=== PATIENT | female | born 1950 | race Caucasian/White ===

== ENCOUNTER → 2017-01-15 | Outpatient (CLI) | payer MEDICARE, OTHER ==
[2017-01-15 11:32] LABS: Basophils % (A) 1 %; CH 30.1; CHCM 34.4; Eosinophils # (A) 0.2 k/uL (0-0.7); Eosinophils % (A) 4 %; HCT 41.3 % (34.0-46.0); HDW 2.81; HGB 13.9 gm/dL (11.4-16.0); Luc % (Auto) 2; Lymphocytes # (A) 1.7 k/uL (1.0-4.8); Lymphocytes % (A) 33 %; MCH 29.7 pg (25.0-35.0); MCHC 33.7 g/dL (31.0-37.0); MCV 87.9 fL (80.0-100.0); Mean Platelet Volume 8.6; Monocytes # (A) 0.2 k/uL (0-1.0); Monocytes % (A) 4 %; Neutrophils # (A) 2.9 k/uL (1.3-7.7); Neutrophils % (A) 57 %; RBC 4.69 m/uL (3.80-5.40); RDW 13.1 % (11.5-15.5); WBC 5.1 k/uL (3.8-10.6); WBC (Perox) 5.19
[2017-01-15 11:49] LABS: ALT 27 U/L (9-52); AST 30 U/L (14-36); Alkaline Phosphatase 92 U/L (38-126); Anion Gap 11 mmol/L; Blood Urea Nitrogen 15 mg/dL (7-17); Calcium 9.7 mg/dL (8.4-10.2); Carbon Dioxide 27 mmol/L (22-30); Chloride 104 mmol/L (98-107); Cholesterol 239 mg/dL (<200); Glucose 155 mg/dL (74-99); HDL Cholesterol 52 mg/dL (40-60); Non-African American GFR(MDRD) >60 (>60 ml/min/1.73 sqM); Potassium 3.8 mmol/L (3.5-5.1); Sodium 142 mmol/L (137-145); Total Bilirubin 1.4 mg/dL (0.2-1.3); Triglycerides 130 mg/dL (<150)
[2017-01-15 12:33] LABS: Hemoglobin A1C 5.9 % (4.2-6.1)
--- NOTE | 2017-01-15 13:15 | CT ---
EXAMINATION TYPE: CT abdomen pelvis w con DATE OF EXAM: 01/15/2017 12:58 PM HISTORY: Diverticulitis per order. Left-sided pain and nausea. Irregular bowel movements. CT DLP: 513.2mGycm Automated Exposure Control for Dose Reduction was Utilized. CONTRAST: CT scan of the abdomen and pelvis is performed with IV Contrast, patient injected with 100 ml mL of O mnipaque 300. COMPARISON: CT abdomen and pelvis October 15, 2016. FINDINGS: LUNG BASES: Dependent atelectatic change is present. There is stable mild cardiomegaly. LIVER/GB: No significant abnormality is appreciated. PANCREAS: No significant abnormality is seen. SPLEEN: No significant abnormality is seen. ADRENALS: No significant abnormality is seen. KIDNEYS: Persistent anterior axis to both kidneys is present. Symmetric cortical measure uptake and e xcretion is noted. BOWEL: Sigmoid colonic diverticula are redemonstrated. There is no convincing evidence for acute dive rticulitis. There is no suspicious small or large bowel dilatation seen. Oral contrast reaches proxim al transverse colon level UTERUS/ADNEXA: No gross abnormality seen. LYMPH NODES: No greater than 1cm abdominal or pelvic lymph nodes are appreciated. OSSEOUS STRUCTURES: There is disc space narrowing with vacuum disc phenomenon L5-S1 level. There is m ultilevel spurring. There is facet arthropathy lower lumbar levels. OTHER: No significant additional abnormality is seen. IMPRESSION: Colonic diverticulosis most pronounced sigmoid colon level without CT evidence for acute diverticulitis. No significant new finding is seen to account for patient's symptoms.
== END | disposition home or self-care (01) ==
LOC: RADCTMAIN 09:51
PROVIDERS: ATTEND Pediatrics
DX: K57.30 Diverticulosis of large intestine without perforation or abscess without bleeding (principal); E11.9 Type 2 diabetes mellitus without complications; K57.32 Diverticulitis of large intestine without perforation or abscess without bleeding
CPT/HCPCS: 80061; 80053; 83036; 85025; 74177; 36415; Q9967

== ENCOUNTER 2017-03-17 06:56 | Day surgery (SDC) | payer MEDICARE, OTHER ==
[2017-03-15 10:48] VITALS: BMI 25.0
[~2017-03-17 06:56] MED LIST: LACTATED RINGERS 1,000 ML IV SCH
[2017-03-17 07:16] VITALS: TEMP 96.9
[2017-03-17] MEDS ORDERED: ONDANSETRON 4 MG/2 ML VIAL IVP ONE (07:16)
[2017-03-17 07:27] LABS: Glucose,Whole Blood 103 mg/dL (75-99)
[2017-03-17] MEDS ORDERED: fentaNYL (PF) 50 MCG/ML 2 ML AMP ONE (07:37)
[2017-03-17] MEDS ORDERED: LIDOCAINE 1% INJ 10MG/ML (20 ML MDV) ONE (07:37)
[2017-03-17] MEDS ORDERED: MIDAZOLAM 2 MG/2 ML VIAL ONE (07:37)
[2017-03-17] MEDS ORDERED: PROPOFOL 10 MG/ML 20 ML VIAL IV ONE (07:37)
--- NOTE | 2017-03-17 07:56 | P.PCN ---
Date of Procedure: 03/17/17 Preoperative Diagnosis: Postoperative Diagnosis: Procedure(s) Performed: Brief history: Patient is a pleasant 66-year-old white female, scheduled for an elective upper endoscopy as well as colonoscopy as a part of evaluation of lower abdominal pain , change in bowel habits and intermittent nausea vomiting for the last several months duration. She was recently diagnosed with acute sigmoid diverticulitis and was treated with antibiotics. She did well for 2 weeks and then started having recurrent symptoms. Procedure performed: Esophagogastroduodenoscopy with biopsy Colonoscopy Preoperative diagnosis: Nausea/vomiting Lower abdominal pain and change in bowel habits Anesthesia: MAC Procedure: After informed consent was obtained from the patient was brought into the endoscopy unit and IV sedation was administered by anesthesia under continuous monitoring. Initially upper endoscopy was done. The Olympus GF 160 video endoscope was inserted inserted into the mouth and esophagus intubated without any difficulty and was gradually advanced into the stomach and duodenum and carefully examined. The bulb and second part of the duodenum appeared normal. The scope was then withdrawn into the stomach adequately insufflated with air and upon careful examination the antrum had mild gastritis and biopsies were done from this area. The body, cardia and fundus appeared normal. The scope was then withdrawn into the esophagus. small hiatal hernia noted. The GE junction was located at 40 cm to the incisors. It appeared regular with no erythema erosions or ulcerations. Rest of the esophagus appeared normal. Patient tolerated the procedure well. At this time the patient continued to remain sedation. Initial digital rectal examination was normal. Olympus CF 160 video colonoscope was then inserted into the rectum and gradually advanced to the cecum without any difficulty. Careful examination was performed as the scope was gradually being withdrawn. The prep was excellent. The cecum, ascending colon, transverse colon, descending colon, sigmoid colon and rectum appeared normal. scattered sigmoid diverticulosis seen. Retroflexion was performed in the rectum and no lesions were noted. Patient tolerated the procedure well. Impression: 1. Upper endoscopy revealed small hiatal hernia and mild antral gastritis. 2. Colonoscopy revealed scattered sigmoid diverticulosis but no evidence of colitis or colorectal neoplasia. Recommendations: Findings of this examination were discussed with the patient as well as her family. She was advised to follow with the biopsy results. She will follow with the biopsy results and can have a repeat screening colonoscopy in 10 years. Implants: Indications for Procedure: Operative Findings: Description of Procedure:
[2017-03-17 08:16] VITALS: RESP 16
[2017-03-17 08:57] VITALS: BP 184/83; PULSE 57
== END 2017-03-17 09:51 | disposition home or self-care (01) ==
LOC: ORWHC2ENDO 06:56
PROVIDERS: ATTEND Internal Medicine Gastroenterology
DX: K29.50 Unspecified chronic gastritis without bleeding (principal); K44.9 Diaphragmatic hernia without obstruction or gangrene; K57.30 Diverticulosis of large intestine without perforation or abscess without bleeding; E11.9 Type 2 diabetes mellitus without complications; Z79.84 Long term (current) use of oral hypoglycemic drugs; F41.9 Anxiety disorder, unspecified; Z79.899 Other long term (current) drug therapy; Z88.8 Allergy status to other drugs, medicaments and biological substances
CPT/HCPCS: 88305; 88342; 45378; 43239; J2250; J2405; J2001; J3010; J2704

== ENCOUNTER → 2017-05-05 | Outpatient (CLI) | payer MEDICARE, OTHER ==
--- NOTE | 2017-05-05 11:29 | XR ---
EXAM TYPE: LUMBAR SPINE X RAY SERIES COMPARISON: NONE HISTORY: Pain TECHNIQUE: 4 views are submitted. FINDINGS: Alignment is anatomic. The pedicles are intact. The transverse processes are intact. There is mild diffuse osteopenia. There is degenerative disc disease at all levels with facet arthropathy. No spon dylolisthesis. Severe degenerative changes L5-S1 and L2-L3. IMPRESSION: 1. Multilevel degenerative disc disease and facet arthropathy.
[2017-05-05 11:43] LABS: CH 30.2; CHCM 34.8; HCT 40.6 % (34.0-46.0); HDW 2.79; HGB 13.9 gm/dL (11.4-16.0); MCH 29.9 pg (25.0-35.0); MCHC 34.4 g/dL (31.0-37.0); MCV 87.1 fL (80.0-100.0); Mean Platelet Volume 8.6; RBC 4.66 m/uL (3.80-5.40); RDW 12.6 % (11.5-15.5)
[2017-05-05 11:48] LABS: ALT 24 U/L (9-52); AST 24 U/L (14-36); Alkaline Phosphatase 78 U/L (38-126); Anion Gap 11 mmol/L; Blood Urea Nitrogen 17 mg/dL (7-17); Calcium 9.6 mg/dL (8.4-10.2); Carbon Dioxide 27 mmol/L (22-30); Chloride 103 mmol/L (98-107); Cholesterol 227 mg/dL (<200); Glucose 107 mg/dL (74-99); HDL Cholesterol 51 mg/dL (40-60); Non-African American GFR(MDRD) >60 (>60 ml/min/1.73 sqM); Sodium 141 mmol/L (137-145); Total Bilirubin 1.8 mg/dL (0.2-1.3); Total Protein 7.6 g/dL (6.3-8.2); Triglycerides 98 mg/dL (<150)
[2017-05-05 20:13] LABS: Hemoglobin A1C 6.2 % (4.2-6.1)
== END | disposition home or self-care (01) ==
LOC: LABWHC1 10:46
PROVIDERS: ATTEND Physician Assistant Medical
DX: M51.36 Other intervertebral disc degeneration, lumbar region (principal); M46.86 Other specified inflammatory spondylopathies, lumbar region; E11.9 Type 2 diabetes mellitus without complications; M54.5 Low back pain
CPT/HCPCS: 36415; 72100; 80053; 80061; 83036; 84443; 85027

== ENCOUNTER 2017-06-05 22:40 | Emergency (ER) | payer MEDICARE, OTHER ==
[2017-06-05 22:45] VITALS: BP 212/92; PULSE 67; RESP 18; TEMP 100.1
--- NOTE | 2017-06-05 23:43 | ED ---
General Adult HPI - General Chief complaint: Extremity Injury, Lower Stated complaint: Foot Pain Time Seen by Provider: 06/05/17 23:01 Source: patient, RN notes reviewed Mode of arrival: ambulatory Limitations: no limitations - History of Present Illness Initial comments: 66-year-old female presents to the emergency Department chief complaint of concern for foreign body in the left foot. Patient states she is walking outside and she felt like a sting to her left foot she does not know if it was a bee or a piece of glass. Patient states her one more time today and that it has not hurt since. Patient states that she has noticed low throat irritation but she was outside all day in the rain as well. Patient states she was concerned so she thought that she should be evaluated.Patient denies any recent fever, chills, shortness of breath, chest pain, back pain, abdominal pain, nausea vomiting, numbness or tingling, dysuria or hematuria, constipation or diarrhea, headaches or visual changes, or any other current symptoms. - Related Data Home Medications Medication Instructions Recorded Confirmed ALPRAZolam [Xanax] 0.125 mg PO HS 03/15/17 06/05/17 Calcium Carbonate [Calcium] 600 mg PO DAILY 03/15/17 06/05/17 Multivitamins, Thera [Multivitamin 1 each PO DAILY 03/15/17 06/05/17 (formulary)] Vitamin C/Biotin [Hair, Skin and 1 each PO DAILY 03/15/17 06/05/17 Nails] metFORMIN HCL [Glucophage] 250 mg PO DAILY 03/15/17 06/05/17 Allergies Allergy/AdvReac Type Severity Reaction Status Date / Time STEROIDS AdvReac FLU LIKE Uncoded 06/05/17 22:45 SYMPTOMS Review of Systems ROS Statement: Those systems with pertinent positive or pertinent negative responses have been documented in the HPI. ROS Other: All systems not noted in ROS Statement are negative. Past Medical History Past Medical History: Diabetes Mellitus Additional Past Medical History / Comment(s): DIVERTICULOSIS. CHRONIC SINUS TYPE COUGH History of Any Multi-Drug Resistant Organisms: None Reported Additional Past Surgical History / Comment(s): Blepharoplasty BILAT EYELIDS Past Anesthesia/Blood Transfusion Reactions: Postoperative Nausea & Vomiting ( PONV) Past Psychological History: Anxiety Smoking Status: Never smoker Past Alcohol Use History: Occasional Past Drug Use History: None Reported - Past Family History Mother Family Medical History: No Reported History General Exam Limitations: no limitations General appearance: alert, in no apparent distress Head exam: Present: atraumatic, normocephalic, normal inspection Eye exam: Present: normal appearance, PERRL, EOMI. Absent: scleral icterus, conjunctival injection, periorbital swelling ENT exam: Present: normal exam, normal oropharynx, mucous membranes moist, TM's normal bilaterally Neck exam: Present: normal inspection. Absent: tenderness, meningismus, lymphadenopathy Respiratory exam: Present: normal lung sounds bilaterally. Absent: respiratory distress, wheezes, rales, rhonchi, stridor Cardiovascular Exam: Present: regular rate, normal rhythm, normal heart sounds. Absent: systolic murmur, diastolic murmur, rubs, gallop, clicks Neurological exam: Present: alert, oriented X3 Psychiatric exam: Present: normal affect, normal mood Skin exam: Present: warm, dry, intact, other (Small puncture wound to the bottom of the left foot) Course Vital Signs 06/05/17 22:42 Temperature 100.1 F H Pulse Rate 67 Respiratory 18 Rate Blood Pressure 212/92 O2 Sat by Pulse 99 Oximetry Medical Decision Making - Medical Decision Making 66-year-old female presents with puncture wound to the bottom of the left foot. At this time it is very minimal there is no bleeding associated with it. This time we discussed other causes for this. No foreign bodies visualized on x -ray. At this time we did discuss that could still be foreign body. Care of area. We did discuss the patient's ears nose and throat exam does appear to be normal. We discussed different possible causes multiple causes. We discussed close follow-up we discussed return parameters and all patient's questions. She stated that she understood and she is given plan. She'll be discharged home. Disposition Clinical Impression: Puncture wound of left foot, Throat irritation Disposition: HOME SELF-CARE Condition: Stable Instructions: Puncture Wound (ED), Pharyngitis (ED) Additional Instructions: Please use medication as discussed. Please follow up with family doctor if symptoms have not improved over the next two days. Please return to the emergency room if your symptoms increase or worsen or for any other concerns. Referrals: Johanna Maza III, MD [Primary Care Provider] - 1-2 days Time of Disposition: 23:57
--- NOTE | 2017-06-05 23:53 | XR ---
EXAM: XR Left Foot Complete, 3 or More Views CLINICAL HISTORY: Reason: Pain TECHNIQUE: Frontal, lateral and oblique views of the left foot. COMPARISON: None. FINDINGS: Bones/joints: Osteopenia suggested. A tiny calcaneal spur seen. Mild degenerative changes. No acute fracture. No dislocation. Soft tissues: Unremarkable. No radiopaque foreign body. IMPRESSION: No acute findings, as above.
== END 2017-06-06 00:10 | disposition home or self-care (01) ==
LOC: SUPCPDRO 22:40 → EC 22:40
DX: S91.332A Puncture wound without foreign body, left foot, initial encounter (principal); R09.89 Other specified symptoms and signs involving the circulatory and respiratory systems; E11.9 Type 2 diabetes mellitus without complications; F41.9 Anxiety disorder, unspecified; Z88.8 Allergy status to other drugs, medicaments and biological substances; Z79.84 Long term (current) use of oral hypoglycemic drugs; Z79.899 Other long term (current) drug therapy; X58.XXXA Exposure to other specified factors, initial encounter; Y93.01 Activity, walking, marching and hiking
CPT/HCPCS: 99283

== ENCOUNTER → 2017-06-21 | Outpatient (CLI) | payer MEDICARE, OTHER ==
--- NOTE | 2017-06-21 21:31 | MR ---
EXAMINATION TYPE: MR lumbar spine wo con DATE OF EXAM: 06/21/2017 COMPARISON: CT abdomen and pelvis January 15, 2017 HISTORY: Low back pain per order. Back pain with spasms since 1994 per patient causing pain into bila teral buttocks TECHNIQUE: Multiplanar, multisequence imaging of the lumbar spine is performed without IV contrast. FINDINGS: Survey images redemonstrates dextroconvex scoliotic curvature centered in the upper to mid lumbar spine. Sagittal images of the lumbar spine show vertebral body heights and alignment to appear satisfactory. Multilevel disc desiccation is present. There is multilevel mild to moderate disc spac e narrowing with relative sparing of L4-L5. Multilevel posterior disc herniations are seen on sagitta l images in the mid to lower lumbar spine. The conus medullaris is normal in position and signal endi ng at inferior L1 level. The bone marrow signal intensity is overall slightly heterogeneous with hem angioma noted in the inferior anterior T11 endplate. There is mild to moderate multilevel anterior sp urring redemonstrated. Axial images show the T12-L1 level to appear within normal limits. Axial images at the L1-L2 level show mild broad disc bulge mildly effacing anterior thecal sac and ax ial image 23. Bilateral neural foramina are patent. Axial images at L2-L3 level show moderate broad-based posterior disc protrusion effacing anterior the omayra sac. There is mild facet degenerative changes and ligamentum flavum hypertrophy effacing posterio r lateral thecal sac on axial images 17 and 18. There is mild bilateral anterior inferior neural fora brandy narrowing at this level identified. Axial images at the L3-L4 level show mild to moderate facet degenerative changes bilaterally effacing posterior lateral thecal sac. There is mild to moderate broad disc bulge effacing anterior thecal sa c. There is moderate left and mild right-sided anterior inferior neural foraminal narrowing. Encroach ment on right L3 nerve lung anterior inferior aspect is felt present on sagittal image 4 and axial im ages 13 and 14. Axial images at the L4-L5 level show moderate facet degenerative changes effacing posterior lateral t hecal sac on axial image 8. There is broad-based right paracentral/foraminal disc protrusion effacing anterior thecal sac. There is mild to moderate right and mild left-sided anterior inferior neural fo raminal narrowing at this level identified. Axial images at the L5-S1 level show mild to moderate facet degenerative changes bilaterally. There i s broad disc bulge mildly effacing the anterior thecal sac. There is mild bilateral anterior inferior neural foraminal narrowing identified. Paraspinal muscle bulk is maintained bilaterally. No suspicious retroperitoneal findings are present. IMPRESSION: Multilevel degenerative changes in the lumbar spine most prominent in mid to lower lumbar levels as detailed above, effacement of right L3 nerve is suspected as detailed above.
== END | disposition home or self-care (01) ==
LOC: RADMRIMAIN 15:12
PROVIDERS: ATTEND Physician Assistant Medical
DX: M47.817 Spondylosis without myelopathy or radiculopathy, lumbosacral region (principal)
CPT/HCPCS: 72148

== ENCOUNTER → 2017-09-01 | Outpatient (CLI) | payer MEDICARE, OTHER ==
[2017-09-01 13:55] VITALS: BP 195/89; PULSE 58; RESP 16
--- NOTE | 2017-09-01 14:18 | P.CONS ---
History of Present Illness - Reason for Consult Consult date: 09/01/17 - History of Present Illness The initial consultation visit for this 66 years old female with a chronic history of severe low back pain, started more than 10 years ago, and still the pain increased over the last 2 years, currently the pain is constant and increases with any activity localized mostly in the low back area, with occasional radiation to the thighs bilaterally , she denies any motor or sensory deficits but she reported that the intensity of the pain interfering with her quality of life and ability to function and do activities of daily livings, she reported that there is some change in the bone involvement , and this is attributed to diverticulitis/diverticulosis, he denies any fever or night sweats. Past Medical History Past Medical History: Diabetes Mellitus, Hypertension Additional Past Medical History / Comment(s): DIVERTICULOSIS. CHRONIC SINUS TYPE COUGH History of Any Multi-Drug Resistant Organisms: None Reported Additional Past Surgical History / Comment(s): Blepharoplasty BILAT EYELIDS Past Anesthesia/Blood Transfusion Reactions: Postoperative Nausea & Vomiting ( PONV) Past Psychological History: Anxiety Smoking Status: Never smoker Past Alcohol Use History: Occasional Past Drug Use History: None Reported - Past Family History Mother Family Medical History: No Reported History Medications and Allergies Home Medications Medication Instructions Recorded Confirmed Type ALPRAZolam [Xanax] 0.125 mg PO HS 03/15/17 09/01/17 History Calcium Carbonate [Calcium] 600 mg PO DAILY 03/15/17 09/01/17 History Multivitamins, Thera [Multivitamin 1 tab PO DAILY 03/15/17 09/01/17 History (formulary)] metFORMIN HCL [Glucophage] 250 mg PO DAILY 03/15/17 09/01/17 History Ciprofloxacin HCl [Cipro] 500 mg PO Q12HR #20 tablet 08/26/17 09/01/17 Rx Hydrocodone/Acetaminophen [[place] 1 tab PO Q6HR PRN #15 tab 08/26/17 09/01/17 Rx 5-325] Ibuprofen [Motrin] 800 mg PO Q6H PRN 08/26/17 09/01/17 History Lisinopril [Zestril] 5 mg PO BID 08/26/17 09/01/17 History Ondansetron Odt [Zofran Odt] 4 mg PO Q8HR PRN #10 tab 08/26/17 09/01/17 Rx metroNIDAZOLE [Flagyl] 500 mg PO TID #30 tab 08/26/17 09/01/17 Rx Allergies Allergy/AdvReac Type Severity Reaction Status Date / Time bee venom protein (honey bee) Allergy Anaphylaxis Verified 09/01/17 13:40 hornet venom Allergy Anaphylaxis Verified 09/01/17 13:40 STEROIDS AdvReac FLU LIKE Uncoded 09/01/17 13:40 SYMPTOMS Physical Exam Vitals: Vital Signs Pulse Resp BP Pulse Ox 09/01/17 13:43 58 L 16 195/89 98 Intake and Output 08/31/17 09/01/17 09/01/17 22:59 06:59 14:59 Other: Weight 69.853 kg Patient Weight 09/02/17 06:59 Weight 69.853 kg Social history : not smoker , NO ETOH , NO Illegal drugs use . Review of Systems : 1- Constitutional : no chills , no fever , no night sweats , 2- Ears : no ear discharge , no change in hearing 3-Nose, Mouth ,Throat ; no bleeding gums, no sore throat , no epistaxis , 4-Cardiovascular : Denies chest pain, , no orthopnea , no palpitation 5-Respiratory : Denies cough , no dyspnea , no hemoptysis 6-Gastrointestinal :, ++ change in bowel habits , no coffee- ground emesis . 7-Genitourinary : No hematuria , no discharge , no incontinence, 8-Musculoskeletal : No gait dysfunction , report low back pain , 9- Neurological : no ataxia , no tremor , no sezure , 10-Psychatric , no suicidal ideation no hallucination 11- Endocrine : no cold intolerence , no polyuria , no polydypsia , 12-Hematologic : no easy bleeding , no easy brusing , 13-Allergic / immunology : no angioedema , no wheezing ,no allergic rhinitis 14-Integumentary : no brttle nails , no change hair / nails , no foot/leg ulcers . Physical Examinations : 1-Constitutional : Cooperative , not in acute distress . 2-HEENT : nech ; supple , no Lymphadenopathy , no Thyromegaly , :eyes , no icterus, no photophobia . ENT : , normal oropharynx , no Thrush 3- Respiratory : Chest clear to auscultations Bilaterally , no wheezing . 4- Cardiovascular : regular rate and rhythem , S1 , S2 , no S3 , no S4. 5- Gastrointestinal: abdomen soft no tenderness , no organomegally . 6- Genitourinary : Defferred . 7-Integumentary : No cellulitis , no ulcers , normal skin turgor , no cyanotic . 8- neurologic : Cranial nerve II to XII intact , no focal neurological deffecit 9-psychatric : alert , oriented X 3 , appropriate affect , intact judgment and insight . 10-Lymphatic : no Lymphadenopathy. 11- musculoskeltal: normal gait Lumber spine moter stegnth lower extremities ,thigh and legs 5/5 Right side , 5/5 Left side deep tendon reflexes : normal Knee Jerk , normal ankle Jerk positive lumber facet Loading Test Range of motion of the lumbar spine Flexion 30 degrees, extension 10 degrees strait leg raising test , positive at 30 degree Fabere test positive RT and positive LT . Results Comments: MRI of the lumbar spine= multilevel lumbar degenerative disc disease and multilevel lumbar facet arthropathy Assessment and Plan Plan: Assessment and plan= chronic low back pain secondary to lumbar degenerative disc disease , lumbar spondylosis with lumbar facet arthropathy , clinically most of the pain is coming from facetogenic component Interventional pain management= patient could be good candidate to have diagnostic medial branch block lumbar area at L3 4/L4-5/L5-S1 , Time with Patient: Greater than 30
== END | disposition home or self-care (01) ==
LOC: PNWHC3 13:10
PROVIDERS: ATTEND Specialist
DX: M51.36 Other intervertebral disc degeneration, lumbar region (principal); M47.816 Spondylosis without myelopathy or radiculopathy, lumbar region; M46.86 Other specified inflammatory spondylopathies, lumbar region; Z79.1 Long term (current) use of non-steroidal anti-inflammatories (NSAID); Z79.899 Other long term (current) drug therapy; Z88.8 Allergy status to other drugs, medicaments and biological substances; Z91.030 Bee allergy status
CPT/HCPCS: 99211

== ENCOUNTER → 2017-11-09 | Outpatient (CLI) | payer MEDICARE, OTHER ==
--- NOTE | 2017-11-09 12:15 | WWHP ---
[facility] - HISTORY AND PHYSICAL DATE OF DICTATION: 11/09/2017 CHIEF COMPLAINT: The patient is here for her routine gynecologic exam and mammogram. HPI: This is a 67-year-old, G2, P1-0-1-1 with an LMP of 2002. The patient is without gynecologic complaints and denies any postmenopausal bleeding. PAST MEDICAL HISTORY: Type 2 diabetes, chronic hypertension, chronic back problems and diverticulosis. MEDICATIONS: 1. Lisinopril 10 mg daily. 2. Metformin 250 mg daily. 3. Xanax 0.25 mg at bedtime p.r.n. 4. [place] p.r.n. 5. Ibuprofen p.r.n. ALLERGIES: No known drug allergies. PAST SURGICAL HISTORY: Eyelid surgery 2009, nasal surgery 1996, right breast biopsy in the past and colonoscopy 02/2017. 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 SOCIAL HISTORY: She denies tobacco and drug use and has about one alcohol-containing drink per week. She is and is not seeing anybody at this time. She is considered disabled. 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 FAMILY HISTORY: Father had an [facility]. REVIEW OF SYSTEMS: Weight has been stable. She denies respiratory, cardiac or GI problems. She denies maltreatment or falling. : She denies any significant problems with urinary leakage. PHYSICAL EXAM: Blood pressure 154/84, height 5 feet 4-1/2 inches, weight 149 pounds, BMI 25. Temperature 97.4, pulse 51. This is a well-developed, well-nourished, white female, who is alert and oriented x3, in no acute distress. HEENT is within normal limits. NECK: Supple without mass or thyromegaly. CHEST AND LUNGS: Clear to auscultation. HEART: Regular rate and rhythm. Breasts are without mass or discharge. The left nipple is inverted and she states it has been this way since about 2013. Axillary exam is negative for adenopathy. Back negative for CVA tenderness. ABDOMEN: Soft, nontender, without palpable masses. PELVIC EXAM: External genitalia reveals mild atrophy without lesions. Cervix and vagina reveals mild atrophy without lesions. There is no evidence of prolapse. The uterus is mid position, nongravid size and nontender. There are no palpable adnexal masses or tenderness. Rectovaginal exam is negative for mass or tenderness and is negative for occult blood. EXTREMITIES: Nontender. IMPRESSION: A 67-year-old menopausal female with normal gynecologic exam. PLAN: 1. Pap smear was deferred since she had a normal one less than 2 years ago. 2. Self breast examination was discussed. 3. Mammogram will be done today. 4. Osteoporosis prevention was discussed. Bone density screening was recommended and a slip was given to the patient for this. 5. She is declining flu shots. 6. She will return in 1 year. MMODL / IJN: [id number] /
--- NOTE | 2017-11-10 11:40 | MM ---
Reason for exam: screening (asymptomatic). Last mammogram was performed 1 year and 5 months ago. History: Patient is postmenopausal. Excisional biopsy of the right breast, 1979. Took hormonal contraceptives for 33 years beginning at age 21. Physical Findings: A clinical breast exam by your physician is recommended on an annual basis and results should be correlated with mammographic findings. MG 3D Screening Mammo W/Cad Bilateral CC and MLO view(s) were taken. Prior study comparison: October 06, 2016, left breast US breast LT. May 28, 2016, bilateral MG 3d diag mammo w/cad E[facility]. March 13, 2015, bilateral MG diagnostic mammo w CAD E[facility]. The breast tissue is heterogeneously dense. This may lower the sensitivity of mammography. No suspicious abnormality. No significant changes when compared with prior studies. ASSESSMENT: Negative, BI-RAD 1 RECOMMENDATION: Routine screening mammogram of both breasts in 1 year.
== END | disposition home or self-care (01) ==
LOC: WWCWWP 10:32
PROVIDERS: ATTEND Obstetrics & Gynecology
DX: Z12.31 Encounter for screening mammogram for malignant neoplasm of breast (principal)
CPT/HCPCS: 77063; 77067

== ENCOUNTER → 2018-10-04 | Outpatient (CLI) | payer MEDICARE, OTHER ==
[2018-10-04 11:45] VITALS: BP 160/76; PULSE 60; TEMP 97.8; BMI 26.7
--- NOTE | 2018-10-04 12:21 | P.PN ---
Progress Note - Text Progress Note Date: 10/04/18 Chief Complaint: menstrual like cramping which started 3 days ago. HPI: this is a 67-year-old with an LMP of 2002. The patient states she started an exercise routine about 2 weeks ago and has been walking and running for exercise. Three days ago, she was at an event and ran a short distance when she developed menstrual like cramping. She states that felt like something was in the vagina that wanted to come out. She had this type of sensation years ago when she would pass blood during a menstrual period. She denies any postmenopausal bleeding. She states the has improved today. She feels that she may have passed a small amount of gas from the vagina. She has also had occasional left lower quadrant and left pelvic discomfort which she has attributed to diverticulosis. She has noticed this discomfort with certain types of foods. This left sided discomfort is different than what she was experiencing 3 days ago. ROS: she denies fever, respiratory, cardiac, or G.I. problems. She states her bowel movements have been regular. She denies diarrhea or loose stools. Her appetite has been good. She denies any new sexual partners. PE: Blood pressure: 160 or 76, Height: 5'4", Weight: 156 pounds, Temperature: 97.8, Pulse:[]. This is a well developed, well nourished, white female who is alert and orientedx3, in no acute distress. Abdomen soft, nontender and nondistended. There are no palpable abdominal masses. Pelvic exam: external genitalia reveals mild atrophy without lesions. Cervix and vagina appear normal. There is no unusual discharge and no evidence of blood. There is no cervical motion tenderness. The uterus is mid positioned non-gravid size and nontender. There are no palpable adnexal masses. There is minimal left adnexal tenderness and there is no right adnexal tenderness. Impression: 1. 67-year-old menopausal female with recent history of menstrual type cramping without postmenopausal bleeding. 2. Occasional left lower quadrant and left pelvic pain with minimal tenderness in the area of the left adnexa on exam today. 3. Differential diagnosis for the left adnexal and menstrual type cramping pain include endometrial thickening, Hematometrium, left adnexal mass, and non- gynecologic causes such as intestinal spasm and cramping. Plan: 1. Pelvic ultrasound will be scheduled. We will evaluate the endometrial thickness as well as check for ovarian masses. 2. If the pelvic ultrasound does not show a gynecologic cause, I believe it is more likely that there is a G.I. cause for her discomfort. Time spent with the patient: 25 minutes
--- NOTE | 2018-10-11 16:13 | P.PN ---
Progress Note - Text Progress Note Date: 10/11/18 The patient called today saying she's been having some abdominal pains and difficulty moving her bowels. She states she has had a normal bowel movement in several days. She did have a small stool today and noticed a small amount of blood when she wiped. She is scheduled for her pelvic ultrasound on 2017, but she is trying to move this sooner. A/constipation and abdominal pains with small blood per rectum upon wiping. P/ I've recommended that she try Senokot as directed. She can also try eating prunes or dates followed by drinking hot lemon water. She will try to move the bowels before her pelvic ultrasound is done. She was also instructed that if her pain gets severe or significant problems, she can all so go through the emergency room for evaluation. If the pelvic ultrasound is unremarkable, I will recommend looking into other G.I. causes for her discomfort.
== END | disposition home or self-care (01) ==
LOC: WWCWWP 11:00
PROVIDERS: ATTEND Obstetrics & Gynecology
DX: Z53.9 Procedure and treatment not carried out, unspecified reason (principal)

== ENCOUNTER → 2018-10-14 | Outpatient (CLI) | payer MEDICARE, OTHER ==
--- NOTE | 2018-10-14 13:59 | US ---
EXAMINATION TYPE: US pelvic complete DATE OF EXAM: 10/14/2018 COMPARISON: CT CLINICAL HISTORY: R10.2 PELVIC PAIN. lower abdominal pain and pelvic pain x 2 weeks and now subsiding ; diverticulitis; ; constipation per patient TECHNIQUE: Transabdominal (TA). Transabdominal sonographic images of the pelvis were acquired. Date of LMP: post menopause per patient EXAM MEASUREMENTS: Uterus: 7.4 x 4.0 x 2.6 cm Endometrial Stripe: 0.4 cm Right Ovary: 2.5 x 1.3 x 1.2 cm Left Ovary: 2.4 x 1.9 x 1.3 cm 1. Uterus: Anteverted wnl 2. Endometrium: wnl post menopause 3. Right Ovary: wnl 4. Left Ovary: wnl Spectral, color and waveform doppler imaging shows good arterial and venous flow within the ovaries ; there is no evidence for ovarian torsion. 5. Bilateral Adnexa: wnl 6. Posterior cul-de-sac: wnl IMPRESSION: Unremarkable transabdominal pelvic ultrasound. Endometrial thickness measures 4 mm and is within normal limits for a postmenopausal female. No adnexal masses seen.
--- NOTE | 2018-10-15 10:36 | P.PN ---
Progress Note - Text Progress Note Date: 10/15/18 Test Results Notification Negative pelvic ultrasound test result from 10/14/18. This result was left in a message on the patient's voicemail. Instructed to call if questions.
== END | disposition home or self-care (01) ==
LOC: RADUSWWP 12:19
PROVIDERS: ATTEND Obstetrics & Gynecology
DX: R93.89 Abnormal findings on diagnostic imaging of other specified body structures (principal); R10.2 Pelvic and perineal pain
CPT/HCPCS: 76856

== ENCOUNTER → 2019-01-31 | Outpatient (CLI) | payer MEDICARE, OTHER ==
[2019-01-31 11:35] VITALS: BP 150/71; PULSE 75; RESP 16; TEMP 97.1; BMI 26.4
--- NOTE | 2019-01-31 12:16 | P.HPOB ---
History of Present Illness H&P Date: 01/31/19 Chief Complaint: The patient is here for her routine gynecologic exam and ma mmogram. This is a 68-year-old G to P1011 with an LMP of 2002. The patient is without gynecologic complaints and denies any postmenopausal bleeding. She was seen in September 2018 for menstrual like cramping without bleeding. Pelvic ultrasound was unremarkable. She states the symptoms resolved within one or 2 weeks. Review of Systems The patient has gained 5 pounds over the last year. She denies cardiac or G.I. problems. Respiratory: she is getting over a head cold. She denies maltreatment or falling. : she states when she gets up quickly she occasionally has slight urinary urgency, but this resolves quickly. She denies any significant problems with urinary leakage. Past Medical History Past Medical History: Diabetes Mellitus, Hypertension Additional Past Medical History / Comment(s): Type II diabetes. Chronic back problems. 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 History of Any Multi-Drug Resistant Organisms: None Reported Past Surgical History: Breast Surgery Additional Past Surgical History / Comment(s): Blepharoplasty BILAT EYELIDS. Nasal surgery. Colonoscopy 2017(next in 10 yrs). Right breast biopsy. Past Anesthesia/Blood Transfusion Reactions: Postoperative Nausea & Vomiting (PONV) Past Psychological History: Anxiety Smoking Status: Never smoker Past Alcohol Use History: Occasional (1-4 per week) Past Drug Use History: None Reported Additional History: She is and is not seeing anybody at this time. She is considered disabled. 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 - Past Family History Mother Family Medical History: No Reported History Father Family Medical History: Myocardial Infarction ([place]) Medications and Allergies Home Medications Medication Instructions Recorded Confirmed Type ALPRAZolam [Xanax] 0.125 mg PO HS 03/15/17 01/31/19 History Calcium Carbonate [Calcium] 600 mg PO DAILY 03/15/17 01/31/19 History Multivitamins, Thera [Multivitamin 1 tab PO DAILY 03/15/17 01/31/19 History (formulary)] metFORMIN HCL [Glucophage] 250 mg PO DAILY 03/15/17 01/31/19 History Hydrocodone/Acetaminophen [[place] 1 tab PO Q6HR PRN #15 tab 08/26/17 10/04/18 Rx 5-325] Ibuprofen [Motrin] 400 mg PO Q8HR 09/01/17 10/04/18 History Losartan [Cozaar] 25 mg PO DAILY 10/04/18 10/04/18 History Cholecalciferol [Vitamin D3] 1,000 unit PO DAILY 01/31/19 01/31/19 History Allergies Allergy/AdvReac Type Severity Reaction Status Date / Time bee venom protein (honey bee) Allergy Anaphylaxis Verified 01/31/19 11:22 hornet venom Allergy Anaphylaxis Verified 01/31/19 11:22 STEROIDS AdvReac FLU LIKE Uncoded 01/31/19 11:22 SYMPTOMS Exam Vital Signs Temp Pulse Resp BP 01/31/19 11:31 97.1 F L 75 16 150/71 Intake and Output 01/30/19 01/31/19 01/31/19 22:59 06:59 14:59 Other: Weight 69.853 kg Height 5'4", weight 154 pounds, BMI 26.4. This is a well-developed well-nourished white female who is alert and oriented times 3 in no acute distress. HEENT: Within normal limits. NECK: Supple without mass or thyromegaly. CHEST AND LUNGS: Clear to auscultation. HEART: Regular rate and rhythm. BREASTS: Are without mass or discharge. The left nipple is inverted and she states that is been this way since 2013. AXILLARY EXAM: Negative for adenopathy. BACK: Negative for CVA tenderness. ABDOMEN: Soft, nontender, without palpable masses. PELVIC EXAM: Normal external genitalia with mild atrophy. Cervix and vagina appear normal with mild atrophy. There is no unusual discharge. There is no evidence of prolapse. The uterus is midposition, nongravid size and nontender. There are no palpable adnexal masses or tenderness. RECTAL EXAM: rectovaginal exam is negative for mass or tenderness and is negative for occult blood. EXTREMITIES: Nontender. IMPRESSION: 1. 68-year-old menopausal female with normal gynecologic exam. PLAN: 1. Pap smear was performed. 2. Self breast awareness was discussed with the patient. 3. Screening mammogram will be done today. 4. Osteoporosis prevention was discussed. I have stressed the importance of adequate calcium, vitamin D and regular exercise. Recommended amounts of calcium and vitamin D were also discussed. I have recommended bone density screening since it is been at least 7 years since this was done according to the patient. 5. She states she does not get flu shots. I've asked her to reconsider this. 6.She was advised to return in one year for her annual well woman exam.
--- NOTE | 2019-02-01 13:31 | MM ---
Reason for exam: screening (asymptomatic). Last mammogram was performed 1 year and 3 months ago. History: Patient is postmenopausal. Excisional biopsy of the right breast, 1979. Took hormonal contraceptives for 33 years beginning at age 21. Physical Findings: A clinical breast exam by your physician is recommended on an annual basis and results should be correlated with mammographic findings. MG 3D Screening Mammo W/Cad Bilateral CC and MLO view(s) were taken. Prior study comparison: November 09, 2017, bilateral MG 3d screening mammo w/cad. May 28, 2016, bilateral MG 3d diag mammo w/cad EKTA. The breast tissue is heterogeneously dense. This may lower the sensitivity of mammography. Benign appearing bilateral calcifications. No suspicious abnormality. No significant changes when compared with prior studies. ASSESSMENT: Benign, BI-RAD 2 RECOMMENDATION: Routine screening mammogram of both breasts in 1 year.
== END | disposition home or self-care (01) ==
LOC: WWCWWP 11:13
PROVIDERS: ATTEND Obstetrics & Gynecology
DX: Z12.31 Encounter for screening mammogram for malignant neoplasm of breast (principal)
CPT/HCPCS: 77063; 77067

== ENCOUNTER 2020-05-25 18:43 | Emergency (ER) | payer MEDICARE, OTHER ==
[2020-05-25 18:54] VITALS: PULSE 73
[2020-05-25] MEDS ORDERED: FAMOTIDINE 20 MG/2 ML VIAL IV STA (19:02)
[2020-05-25] MEDS ORDERED: diphenhydrAMINE 50 MG/ML 1 ML VIAL IVP STA (19:02)
[2020-05-25] MEDS ORDERED: methylPREDNISolone SOD SUCCI 125 MG/2 ML VIAL IV STA (19:02)
--- NOTE | 2020-05-25 19:05 | ED ---
Allergic Reaction HPI - General Chief complaint: Allergic Reaction Stated complaint: Bee Stings Time Seen by Provider: 05/25/20 18:58 Source: patient, EMS, RN notes reviewed, old records reviewed Mode of arrival: EMS Limitations: no limitations - History of Present Illness Initial Comments: Patient is a 61-year-old female presents emergency room today with multiple bee stings over her back arm and elbow and hand. Patient reports that there is a swarm of she believes sweat bees. Patient states that she has no trouble breathing trouble swallowing. 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 She has not taken Benadryl or anything else. - Related Data Home Medications Medication Instructions Recorded Confirmed ALPRAZolam [Xanax] 0.125 mg PO HS 03/15/17 01/31/19 Calcium Carbonate [Calcium] 600 mg PO DAILY 03/15/17 01/31/19 Multivitamins, Thera [Multivitamin 1 tab PO DAILY 03/15/17 01/31/19 (formulary)] metFORMIN HCL [Glucophage] 250 mg PO DAILY 03/15/17 01/31/19 Ibuprofen [Motrin] 400 mg PO Q8HR 09/01/17 10/04/18 Losartan [Cozaar] 25 mg PO DAILY 10/04/18 10/04/18 Cholecalciferol [Vitamin D3] 1,000 unit PO DAILY 01/31/19 01/31/19 Previous Rx's Medication Instructions Recorded Hydrocodone/Acetaminophen [[place] 1 tab PO Q6HR PRN #15 tab 08/26/17 5-325] diphenhydrAMINE HCL [Benadryl] 25 mg PO Q6H #20 tab 05/25/20 predniSONE [Deltasone] 20 mg PO DIRECTED #4 tab 05/25/20 Allergies Allergy/AdvReac Type Severity Reaction Status Date / Time bee venom protein (honey bee) Allergy Anaphylaxis Verified 01/31/19 11:22 hornet venom Allergy Anaphylaxis Verified 01/31/19 11:22 STEROIDS AdvReac FLU LIKE Uncoded 01/31/19 11:22 SYMPTOMS Review of Systems ROS Statement: Those systems with pertinent positive or pertinent negative responses have been documented in the HPI. ROS Other: All systems not noted in ROS Statement are negative. Past Medical History Past Medical History: Diabetes Mellitus, Hypertension Additional Past Medical History / Comment(s): Type II diabetes. Chronic back problems. 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 History of Any Multi-Drug Resistant Organisms: None Reported Past Surgical History: Breast Surgery Additional Past Surgical History / Comment(s): Blepharoplasty BILAT EYELIDS. Nasal surgery. Colonoscopy 2017(next in 10 yrs). Right breast biopsy. Past Anesthesia/Blood Transfusion Reactions: Postoperative Nausea & Vomiting (PONV) Past Psychological History: Anxiety Smoking Status: Never smoker Past Alcohol Use History: Occasional Past Drug Use History: None Reported - Past Family History Mother Family Medical History: No Reported History Father Family Medical History: Myocardial Infarction ([place]) General Exam - General Exam Comments Initial Comments: 69 -year-old female. Alert and oriented. No distress. Limitations: no limitations General appearance: alert, in no apparent distress Head exam: Present: atraumatic, normocephalic, normal inspection Eye exam: Present: normal appearance, PERRL, EOMI. Absent: scleral icterus, conjunctival injection, periorbital swelling ENT exam: Present: normal exam, mucous membranes moist Neck exam: Present: normal inspection. Absent: tenderness, meningismus, lymphadenopathy Respiratory exam: Present: normal lung sounds bilaterally. Absent: respiratory distress, wheezes, rales, rhonchi, stridor Cardiovascular Exam: Present: regular rate, normal rhythm, normal heart sounds. Absent: systolic murmur, diastolic murmur, rubs, gallop, clicks GI/Abdominal exam: Present: soft, normal bowel sounds. Absent: distended, tenderness, guarding, rebound, rigid Extremities exam: Present: normal inspection, full ROM, normal capillary refill, other ( has welts over the right hand from bee sting as well as on the right flank and back). Absent: tenderness, pedal edema, joint swelling, calf tenderness Back exam: Present: normal inspection Neurological exam: Present: alert, oriented X3, CN II-XII intact Psychiatric exam: Present: normal affect, normal mood Skin exam: Present: warm, dry, intact, normal color. Absent: rash Course Vital Signs 05/25/20 18:49 Temperature 98.3 F Pulse Rate 73 Respiratory 20 Rate Blood Pressure 178/84 O2 Sat by Pulse 97 Oximetry Medical Decision Making - Medical Decision Making 61-year-old female presents for his arms today for multiple bee stings in her hand and arm and right flank area. She has history of anaphylactic reaction to bees. She reports her multiple sweat bees. At this time Patient has no difficulty breathing or tongue swelling. She is given IV site measuring Benadryl and Pepcid. Patient was reevaluated and her hives are going down significantly. Patient advised to start steroids for the next 2 days and she does have epi pens at home. Disposition Clinical Impression: Bee sting Disposition: HOME SELF-CARE Condition: Good Instructions (If sedation given, give patient instructions): Insect Bite or Sting (ED) Additional Instructions: Please use medication as discussed. Please follow up with family doctor if symptoms have not improved over the next two days. Please return to the emergency room if your symptoms increase or worsen or for any other concerns. Prescriptions: diphenhydrAMINE HCL [Benadryl] 25 mg PO Q6H #20 tab predniSONE [Deltasone] 20 mg PO DIRECTED #4 tab Is patient prescribed a controlled substance at d/c from ED?: No Referrals: Tiff Arcos MD [Primary Care Provider] - 1-2 days Time of Disposition: 20:29
[2020-05-25 20:46] VITALS: BP 166/82; RESP 16; TEMP 97.8
== END 2020-05-25 20:46 | disposition home or self-care (01) ==
LOC: EC 18:43
DX: T63.441A Toxic effect of venom of bees, accidental (unintentional), initial encounter (principal); F41.9 Anxiety disorder, unspecified; E11.9 Type 2 diabetes mellitus without complications; I10 Essential (primary) hypertension; Z79.84 Long term (current) use of oral hypoglycemic drugs; Z79.899 Other long term (current) drug therapy; Z88.7 Allergy status to serum and vaccine; Z91.030 Bee allergy status; Z91.038 Other insect allergy status
CPT/HCPCS: 99284; 96374; 96375 ×2; J1200; J2930

== ENCOUNTER → 2020-09-11 | Outpatient (CLI) | payer MEDICARE, OTHER ==
[2020-09-11 11:05] VITALS: BP 151/82; PULSE 63; RESP 18; TEMP 97.6
--- NOTE | 2020-09-11 11:58 | P.HPOB ---
History of Present Illness H&P Date: 09/11/20 Chief Complaint: The patient is here for her routine gynecologic exam and ma mmogram. This is a 69-year-old 011 with an LMP of 2002. The patient states she had an episode where she was on her feet for a long time and was doing some physical activity when she thought something dropped into the vagina. This sensation was only temporary and has resolved. She is otherwise without complaints. Review of Systems She has gained about 4 pounds over the past year. She denies respiratory, cardiac and G.I. problems. She denies maltreatment or problems with falling. : she denies any significant problems with urinary leakage. Past Medical History Past Medical History: Diabetes Mellitus, Hypertension Additional Past Medical History / Comment(s): Type II diabetes. Chronic back problems. 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 Grade 2 cystocele. History of Any Multi-Drug Resistant Organisms: None Reported Past Surgical History: Breast Surgery Additional Past Surgical History / Comment(s): Blepharoplasty BILAT EYELIDS. Nasal surgery. Colonoscopy 2017(next in 10 yrs). Right breast biopsy. Past Anesthesia/Blood Transfusion Reactions: Postoperative Nausea & Vomiting (PONV) Past Psychological History: Anxiety Smoking Status: Never smoker Past Alcohol Use History: Occasional (0-2 per day) Past Drug Use History: None Reported Additional History: She is and is not seeing anybody at this time and is not sexually active. She enjoys making [employer]. - Past Family History Mother Family Medical History: No Reported History Father Family Medical History: Myocardial Infarction ([place]) Sister(s) Family Medical History: AFIB Medications and Allergies Home Medications Medication Instructions Recorded Confirmed Type ALPRAZolam [Xanax] 0.125 mg PO HS 03/15/17 09/11/20 History Calcium Carbonate [Calcium] 600 mg PO DAILY 03/15/17 09/11/20 History Multivitamins, Thera [Multivitamin 1 tab PO DAILY 03/15/17 09/11/20 History (formulary)] metFORMIN HCL [Glucophage] 250 mg PO DAILY 03/15/17 09/11/20 History Ibuprofen [Motrin] 400 mg PO Q8HR 09/01/17 09/11/20 History Losartan [Cozaar] 25 mg PO DAILY 10/04/18 09/11/20 History Cholecalciferol [Vitamin D3] 1,000 unit PO DAILY 01/31/19 09/11/20 History Allergies Allergy/AdvReac Type Severity Reaction Status Date / Time bee venom protein (honey bee) Allergy Anaphylaxis Verified 09/11/20 11:00 hornet venom Allergy Anaphylaxis Verified 09/11/20 11:00 STEROIDS AdvReac FLU LIKE Uncoded 09/11/20 11:00 SYMPTOMS Exam Vital Signs Temp Pulse Resp BP Pulse Ox 09/11/20 11:02 97.6 F 63 18 151/82 98 Intake and Output 09/10/20 09/11/20 09/11/20 22:59 06:59 14:59 Other: Weight 71.668 kg Height 5 feet 4-1/2 inches, weight 158 pounds, BMI 27. This is a well-developed well-nourished white female who is alert and oriented times 3 in no acute distress. HEENT: Within normal limits. NECK: Supple without mass or thyromegaly. CHEST AND LUNGS: Clear to auscultation. HEART: Regular rate and rhythm. BREASTS: Are without mass or discharge. The left nipple is centrally inverted and this is been this way for many years. AXILLARY EXAM: Negative for adenopathy. BACK: Negative for CVA tenderness. ABDOMEN: Soft, nontender, without palpable masses. PELVIC EXAM: Normal external genitalia with mild atrophy. Cervix and vagina appear normal mild atrophy. There is no unusual discharge. There is a grade 2 cystocele. There is no significant uterine prolapse or rectocele. The uterus is midposition, nongravid size and nontender. There are no palpable adnexal masses or tenderness. RECTAL EXAM: Rectovaginal exam is negative for mass or tenderness and is negative for occult blood. EXTREMITIES: Nontender. IMPRESSION: 1. 69-year-old menopausal female with a minimally symptomatic grade 2 cystocele. 2. Otherwise unremarkable gynecologic exam. PLAN: 1. Pap smears have been discontinued since she is greater than 65 years of age, has no history of cervical problems and has been adequately screened. 2. Self breast awareness was discussed with the patient. 3. Screening mammogram will be done today. 4. Osteoporosis prevention was discussed. I have stressed the importance of adequate calcium, vitamin D and regular exercise. Recommended amounts of calcium and vitamin D were also discussed. I have recommended bone density screening since it has been many years since her last one. The order slip was given to the patient for this. 5. She states she does not get flu shots. She will reconsider this and consider been vaccinated for Covid when available. 6. We have had a long discussion regarding the cystocele. At this time I do not feel surgical intervention is necessary. I recommended that she empties her bladder when needed and not to hold urine longer than necessary. We have also discussed negative Valsalva exercises which she can try she has the sensation of vaginal pressure or if she is having problems with her urinary stream. She was instructed to call for reevaluation if she is having worsening symptoms or problems. The [employer] FAQ handout on pelvic prolapse was given to the patient. 7. She was advised to return in one year for her annual well woman exam.
--- NOTE | 2020-09-13 09:29 | MM ---
Reason for exam: screening (asymptomatic). Last mammogram was performed 1 year and 7 months ago. History: Patient is postmenopausal. Excisional biopsy of the right breast, 1979. Took hormonal contraceptives for 33 years beginning at age 21. Physical Findings: A clinical breast exam by your physician is recommended on an annual basis and results should be correlated with mammographic findings. MG 3D Screening Mammo W/Cad Bilateral CC and MLO view(s) were taken. Prior study comparison: January 31, 2019, bilateral MG 3d screening mammo w/cad. November 09, 2017, bilateral MG 3d screening mammo w/cad. The breast tissue is heterogeneously dense. This may lower the sensitivity of mammography. Focal asymmetry upper right MLO view. No significant changes when compared with prior studies. ASSESSMENT: Benign, BI-RAD 2 RECOMMENDATION: Routine screening mammogram of both breasts in 1 year.
--- NOTE | 2020-09-17 14:28 | P.PN ---
Progress Note - Text Progress Note Date: 09/17/20 The patient has called today stating that she has been having abdominal and pelvic cramping and she also feels like her abdomen is swollen and bloated. She for weight control, but has noticed her abdomen is growing in size. I do not think her symptoms described above are related to her cystocele which we had discussed at the time of her exam on 09/11/2020. I have recommended that we get a pelvic ultrasound to look at the ovaries to rule out an ovarian neoplasm. If there is no evidence of this by ultrasound, I feel that it would be more likely a GI issue. The order slip for the pelvic ultrasound will be mailed to the patient. She states she will try to do this at the time of her bone density test which she will also be scheduling.
== END | disposition home or self-care (01) ==
LOC: WWCWWP 10:48
PROVIDERS: ATTEND Obstetrics & Gynecology
DX: Z12.31 Encounter for screening mammogram for malignant neoplasm of breast (principal)
CPT/HCPCS: 77063; 77067

== ENCOUNTER → 2020-11-13 | Outpatient (CLI) | payer MEDICARE, OTHER ==
--- NOTE | 2020-11-13 15:31 | US ---
EXAMINATION TYPE: US pelvic complete DATE OF EXAM: 11/13/2020 COMPARISON: US, CT CLINICAL HISTORY: ABD BLOATING, R14.0, R10.2 PELVIC PAIN. Patient stated has diverticula with left pe lvic cramping and pelvic bloating, especially noted after meals; TECHNIQUE: Transabdominal (TA). Transabdominal sonographic images of the pelvis were acquired. Date of LMP: post menopause since age 54 EXAM MEASUREMENTS: Uterus: 7.2 x 4.0 x 2.9 cm Endometrial Stripe: 4.7mm Right Ovary: 2.4 x 1.8 x 1.4 cm Left Ovary: 2.6 x 2.0 x 1.8 cm 1. Uterus: Anteverted 2. Endometrium: thickness is wnl for post menopause status 3. Right Ovary: appears wnl 4. Left Ovary: appears wnl Spectral, color and waveform doppler imaging shows good arterial and venous flow within the ovaries ; there is no evidence for ovarian torsion. 5. Bilateral Adnexa: wnl 6. Posterior cul-de-sac: wnl IMPRESSION: 1. Normal pelvic ultrasound
== END | disposition home or self-care (01) ==
LOC: RADUSWWP 09:43
PROVIDERS: ATTEND Obstetrics & Gynecology
DX: R10.2 Pelvic and perineal pain (principal); R14.0 Abdominal distension (gaseous)
CPT/HCPCS: 76856

== ENCOUNTER → 2020-11-13 | Outpatient (CLI) | payer MEDICARE, OTHER ==
[2020-11-13 10:58] LABS: Basophils % (A) 1 %; Eosinophils # (A) 0.1 k/uL (0-0.7); Eosinophils % (A) 2 %; HCT 41.2 % (34.0-46.0); HGB 14.1 gm/dL (11.4-16.0); Lymphocytes # (A) 1.5 k/uL (1.0-4.8); Lymphocytes % (A) 27 %; MCH 30.6 pg (25.0-35.0); MCHC 34.2 g/dL (31.0-37.0); MCV 89.4 fL (80.0-100.0); Mean Platelet Volume 8.9; Monocytes # (A) 0.2 k/uL (0-1.0); Monocytes % (A) 4 %; Neutrophils # (A) 3.4 k/uL (1.3-7.7); Neutrophils % (A) 64 %; Platelet Count 140 k/uL (150-450); RBC 4.61 m/uL (3.80-5.40); WBC 5.3 k/uL (3.8-10.6)
[2020-11-13 15:53] LABS: African American GFR (CKD) 66.6 (60.0-200.0); Albumin 4.8 g/dL (3.80-4.90); Albumin/Globulin Ratio 2.4 (1.60-3.17); Anion Gap 7.7 mmol/L (4.00-12.00); Calcium 9.8 mg/dL (8.7-10.3); Carbon Dioxide 28.3 mmol/L (21.6-31.8); Chol/HDL Ratio 4.37; LDL Cholesterol,Calculated 158.6 mg/dL (0.0-131.0); Non-African American GFR(CKD) 57.4 (60.0-200.0); Potassium 4.1 mmol/L (3.5-5.5); Total Bilirubin 1.5 mg/dL (0.2-1.2); Total Protein 6.8 g/dL (6.2-8.2); VLDL Calculation 23.4 mg/dL (5.00-40.00)
== END | disposition home or self-care (01) ==
LOC: LABWHC1 09:46
PROVIDERS: ATTEND Physician Assistant Medical
DX: E03.9 Hypothyroidism, unspecified (principal); E11.9 Type 2 diabetes mellitus without complications; I10 Essential (primary) hypertension; F41.1 Generalized anxiety disorder
CPT/HCPCS: 36415; 80053; 80061; 84443; 85025

== ENCOUNTER → 2021-07-29 | Outpatient (CLI) | payer MEDICARE, OTHER ==
--- NOTE | 2021-07-29 14:38 | US ---
EXAMINATION TYPE: US venous doppler duplex LE LT DATE OF EXAM: 07/29/2021 2:19 PM COMPARISON: NONE CLINICAL HISTORY: I80.9 PHLEBITIS. Intermittent left leg cramping x 2 weeks SIDE PERFORMED: Left TECHNIQUE: The lower extremity deep venous system is examined utilizing real time linear array sonog shandra with graded compression, doppler sonography and color-flow sonography. VESSELS IMAGED: Common Femoral Vein Deep Femoral Vein Greater Saphenous Vein * Femoral Vein Popliteal Vein Small Saphenous Vein * Proximal Calf Veins (* superficial vessels) Left Leg: Appears negative for DVT Grayscale, color doppler, spectral doppler imaging performed of the deep veins of the left lower extr emity. There is normal flow, compressibility, vascular waveforms. IMPRESSION: No ultrasound evidence for acute DVT in the left lower extremity.
== END | disposition home or self-care (01) ==
LOC: RADUSWWP 13:27
PROVIDERS: ATTEND Orthopaedic Surgery
DX: M79.662 Pain in left lower leg (principal)

== ENCOUNTER → 2021-09-04 | Outpatient (CLI) | payer MEDICARE, OTHER ==
[2021-09-04 12:51] LABS: ALT 25 U/L (4-34); AST 38 U/L (14-36); African American GFR (CKD) >90 (>60 ml/min/1.73 sqM); Albumin 4.2 g/dL (3.5-5.0); Alkaline Phosphatase 93 U/L (38-126); Anion Gap 9 mmol/L; Blood Urea Nitrogen 14 mg/dL (7-17); Calcium 9.3 mg/dL (8.4-10.2); Carbon Dioxide 23 mmol/L (22-30); Chloride 104 mmol/L (98-107); Glucose 158 mg/dL (74-99); Non-African American GFR(CKD) 90 (>60 ml/min/1.73 sqM); Potassium 4.2 mmol/L (3.5-5.1); Sodium 136 mmol/L (137-145); Total Bilirubin 1.3 mg/dL (0.2-1.3); Total Protein 7.3 g/dL (6.3-8.2)
[2021-09-04 13:09] LABS: Basophils # (A) 0.1 k/uL (0-0.2); Basophils % (A) 1 %; Eosinophils # (A) 0.2 k/uL (0-0.7); Eosinophils % (A) 4 %; HGB 13.9 gm/dL (11.4-16.0); Lymphocytes # (A) 1.3 k/uL (1.0-4.8); Lymphocytes % (A) 26 %; MCH 31.9 pg (25.0-35.0); MCV 93.9 fL (80.0-100.0); Mean Platelet Volume 9.7; Monocytes # (A) 0.3 k/uL (0-1.0); Monocytes % (A) 7 %; Neutrophils # (A) 2.9 k/uL (1.3-7.7); Neutrophils % (A) 59 %; Platelet Count 124 k/uL (150-450); RBC 4.36 m/uL (3.80-5.40); RDW 12.3 % (11.5-15.5)
--- NOTE | 2021-09-04 13:52 | BD ---
EXAMINATION TYPE: Axial Bone Density DATE OF EXAM: 09/04/2021 COMPARISON: NONE CLINICAL HISTORY: Height: 5 FT 3 IN Weight: 157 FRAX RISK QUESTIONS: Alcohol (3 or more units per day): NO Family History (Parent hip fracture): NO Glucocorticoids (More than 3mos): NO (Ex: prednisone, prednisolone, methylprednisolone, dexamethasone, and hydrocortisone). History of Fracture in Adulthood: YES Secondary Osteoporosis: 1. Type 1 Diabetes: TYPE 2 2. Hyperthyroidism: NO 3. Menopause before 45: NO 4. Malnutrition: NO 5. Chronic liver disease: NO Rheumatoid Arthritis: NO Current Tobacco Use: NO RISK FACTORS HISTORY OF: History of Wrist Fracture: YES LEFT When: 7-8 YRS AGO Surgery to Spine/Hip(right/left)/Wrist (right/left): NO Family History of Osteoporosis: YES Active: YES Diet low in dairy products/other sources of calcium: NO Postmenopausal woman: YES Take estrogen and/or progesterone medications: NO Lost more than 2 inches in height since high school: YES Poor Health: YES Hyperparathyroidism: NO Adrenal Insufficiency: NO MEDICATIONS: Additional Medications: LISINOPRIL, METFORMIN, XANAX ,MOTRIN NEEDED Additional History: EXAM MEASUREMENTS: Bone mineral densitometry was performed using the [employer] System. Bone mineral density as measured about the Lumbar spine is: ----- L1-L4(G/cm2): 1.168 T Score Values are as follows: ----- L2: -0.4 ----- L3: 0.3 ----- L4: 0.3 ----- L1-L4: -0.1 Bone mineral density has: INCREASED 10.3 % since study of: 2010 Bone mineral density about the R hip (g/cm2): 0.859 Bone mineral density about the L hip (g/cm2): 0.822 T Score values are as follows: -----R Neck: -1.3 -----L Neck: -1.6 -----R Total: -1.0 -----L Total: -1.1 Bone mineral density has: DECREASED -5.2 % since study of: 2010 IMPRESSION: Osteopenia (T Score between -2.5 and -1). There is slightly increased risk of fracture and the patient may be considered for treatment. Re-Screen 2-5 years. NOTE: T-SCORE=SD OF THE YOUNG ADULT MEAN.
[2021-09-04 23:21] LABS: Chol/HDL Ratio 3.53 Ratio; LDL Cholesterol,Calculated 134.6 mg/dL (0.0-131.0)
[2021-09-08 09:11] LABS: Clam IgE <0.10 kU/L; Codfish IgE <0.10 kU/L; Egg White IgE <0.10 kU/L; Peanut IgE <0.10 kU/L; Scallop IgE <0.10 kU/L; Shrimp IgE <0.10 kU/L; Soybean IgE <0.10 kU/L; Walnut IgE (Food) <0.10 kU/L
== END | disposition home or self-care (01) ==
LOC: RADBDWWP 10:05
PROVIDERS: ATTEND Family Medicine
DX: M85.89 Other specified disorders of bone density and structure, multiple sites (principal); M81.0 Age-related osteoporosis without current pathological fracture
CPT/HCPCS: 77080; 80053; 80061; 82785; 83036; 84443; 85025; 86003

== ENCOUNTER → 2021-10-22 | Outpatient (CLI) | payer MEDICARE ==
[2021-10-22 11:44] VITALS: BP 165/72; PULSE 52; RESP 16; TEMP 98.1
--- NOTE | 2021-10-22 12:40 | P.HPOB ---
History of Present Illness H&P Date: 10/22/21 Chief Complaint: The patient is here for her routine gynecologic exam and ma mmogram. This is a 71-year-old 011 with an LMP of 2002. The patient states she still can feel occasional pressure in the vagina from the known cystocele, but denies seeing any bulging outside of the vaginal opening. She had seen a physical therapist at [facility] for the cystocele. He was given some exercises which included Keagle type exercises. She is otherwise without complaints and denies any postmenopausal bleeding. Review of Systems The patient has lost 4 pounds over the last year. She denies respiratory, cardiac, or G.I. problems. Past Medical History Past Medical History: Diabetes Mellitus, Hypertension Additional Past Medical History / Comment(s): Type II diabetes. Chronic back problems. 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 Grade 2 cystocele. History of Any Multi-Drug Resistant Organisms: None Reported Past Surgical History: Breast Surgery Additional Past Surgical History / Comment(s): Blepharoplasty BILAT EYELIDS. Nasal surgery. Colonoscopy 2017(next in 10 yrs). Right breast biopsy. Past Anesthesia/Blood Transfusion Reactions: Postoperative Nausea & Vomiting (PONV) Past Psychological History: Anxiety Smoking Status: Never smoker Past Alcohol Use History: Occasional (5 per week) Past Drug Use History: None Reported Additional History: She is and has been with her current partner since 2020. She lives with her partner. She continues to make [employer]. - Past Family History Mother Family Medical History: No Reported History Father Family Medical History: Myocardial Infarction (MD) Sister(s) Family Medical History: AFIB Medications and Allergies Home Medications Medication Instructions Recorded Confirmed Type ALPRAZolam [Xanax] 0.125 mg PO HS 03/15/17 10/22/21 History Calcium Carbonate [Calcium] 600 mg PO DAILY 03/15/17 10/22/21 History Multivitamins, Thera [Multivitamin 1 tab PO DAILY 03/15/17 10/22/21 History (formulary)] metFORMIN HCL [Glucophage] 250 mg PO DAILY 03/15/17 10/22/21 History Ibuprofen [Motrin] 400 mg PO Q8HR 09/01/17 10/22/21 History Losartan [Cozaar] 25 mg PO DAILY 10/04/18 10/22/21 History Cholecalciferol [Vitamin D3] 1,000 unit PO DAILY 01/31/19 10/22/21 History Allergies Allergy/AdvReac Type Severity Reaction Status Date / Time bee venom protein (honey bee) Allergy Anaphylaxis Verified 10/22/21 11:34 hornet venom Allergy Anaphylaxis Verified 10/22/21 11:34 STEROIDS AdvReac FLU LIKE Uncoded 10/22/21 11:34 SYMPTOMS Exam Vital Signs Temp Pulse Resp BP Pulse Ox 10/22/21 11:38 98.1 F 52 L 16 165/72 99 Intake and Output 10/21/21 10/22/21 10/22/21 22:59 06:59 14:59 Other: Weight 69.853 kg Height 5 feet 4 inches, weight 154 pounds, BMI 26.4. This is a well-developed well-nourished white female who is alert and oriented times 3 in no acute distress. HEENT: Within normal limits. NECK: Supple without mass or thyromegaly. CHEST AND LUNGS: Clear to auscultation. HEART: Regular rate and rhythm. BREASTS: Are without mass or discharge. There is left breast nipple inversion. The patient states it has been this way for many years. AXILLARY EXAM: Negative for adenopathy. BACK: Negative for CVA tenderness. ABDOMEN: Soft, nontender, without palpable masses. PELVIC EXAM: Normal external genitalia with mild atrophy. Cervix and vagina appear normal with mild atrophy. There is no unusual discharge. There is a stab le grade 2 cystocele. There is no significant uterine prolapse or significant rectocele. The uterus is midposition, nongravid size and nontender. There are no palpable adnexal masses or tenderness. RECTAL EXAM: Rectovaginal exam is negative for mass or tenderness and is negative for occult blood. EXTREMITIES: Nontender. Additional studies: Bone density test done on 09/04/2021 shows osteopenia with a 5% decrease in the hips since 2010. IMPRESSION: 1. 79-year-old menopausal female with stable grade 2 cystocele which is minimally symptomatic. 2. History of osteopenia. PLAN: 1. Pap smears have been discontinued. 2. Self breast awareness was discussed with the patient. We have also discussed symptoms associated with inflammatory breast cancer. 3. Screening mammogram will be done today. 4. Osteoporosis prevention was discussed. I have stressed the importance of adequate calcium, vitamin D and regular exercise. Recommended amounts of calcium and vitamin D were also discussed. I recommended repeating bone density testing in approximately 2-3 years. She will also see her PCP regarding final recommendations after the bone density test since it was ordered by her PCP. 5. We've had a long discussion regarding the cystocele. I have again reviewed instructions for negative Valsalva exercises which she can do on a regular basis especially when she notices a bulge in the vagina or prior to urinating. 6. STD prevention was also discussed including the importance of limiting sexual partners. I have also recommended that she consider condom use if she is sexually active. 7. She has had her Covid vaccination series which included to Pfizer vaccinations. She is planning on getting a booster in the near future. 8. She was advised to return in one year for her annual well woman exam.
--- NOTE | 2021-10-24 11:26 | MM ---
Reason for exam: screening (asymptomatic). Last mammogram was performed 1 year and 1 month ago. History: Patient is postmenopausal. Excisional biopsy of the right breast, 1979. Took hormonal contraceptives for 33 years beginning at age 21. Physical Findings: A clinical breast exam by your physician is recommended on an annual basis and results should be correlated with mammographic findings. MG 3D Screening Mammo W/Cad Bilateral CC and MLO view(s) were taken. Prior study comparison: September 11, 2020, bilateral MG 3d screening mammo w/cad. January 31, 2019, bilateral MG 3d screening mammo w/cad. The breast tissue is heterogeneously dense. This may lower the sensitivity of mammography. Global asymmetry right upper outer quadrant is stable. No significant changes when compared with prior studies. ASSESSMENT: Negative, BI-RAD 1 RECOMMENDATION: Routine screening mammogram of both breasts in 1 year. Patient should continue monthly self breast exams. A negative report should not preclude additional follow up of suspicious palpable abnormalities.
== END ==
LOC: WWCWWP 11:07
PROVIDERS: ATTEND Obstetrics & Gynecology
DX: Z12.31 Encounter for screening mammogram for malignant neoplasm of breast (principal); N81.10 Cystocele, unspecified; E11.9 Type 2 diabetes mellitus without complications; I10 Essential (primary) hypertension; F41.9 Anxiety disorder, unspecified; Z87.39 Personal history of other diseases of the musculoskeletal system and connective tissue; Z79.84 Long term (current) use of oral hypoglycemic drugs; Z79.899 Other long term (current) drug therapy; Z91.030 Bee allergy status; Z88.8 Allergy status to other drugs, medicaments and biological substances
CPT/HCPCS: 77063; 77067

== ENCOUNTER → 2022-09-08 | Outpatient (CLI) | payer MEDICARE, OTHER ==
[2022-09-08 14:20] LABS: Basophils # (A) 0.03 X 10*3/uL (0.00-0.10); Basophils % (A) 0.6 %; Eosinophils # (A) 0.09 X 10*3/uL (0.04-0.35); Eosinophils % (A) 1.8 %; HCT 41.7 % (37.2-46.3); HGB 13.9 g/dL (12.0-15.0); Immature Grans, Automated 0.6 %; Lymphocytes # (A) 1.56 X 10*3/uL (0.90-5.00); Lymphocytes % (A) 30.6 %; MCH 30.1 pg (27.0-32.0); MCHC 33.3 g/dL (32.0-37.0); MCV 90.3 fL (80.0-97.0); Mean Platelet Volume 12.3 fL (9.5-12.2); Monocytes # (A) 0.38 X 10*3/uL (0.20-1.00); Monocytes % (A) 7.5 %; NRBC Per 100 WBC 0 /100 WBCS (0.0-0.0); Neutrophils # (A) 3.01 X 10*3/uL (1.80-7.70); Neutrophils % (A) 58.9 %; Platelet Count 146 X 10*3/uL (140-440); RBC 4.62 X 10*6/uL (4.10-5.20); RDW 11.7 % (11.5-14.5)
[2022-09-08 15:40] LABS: ALT 25 U/L (8-44); AST 26 U/L (13-35); African American GFR (CKD) 82.8 (60.0-200.0); Albumin 4.9 g/dL (3.8-4.9); Albumin/Globulin Ratio 2.08 (1.60-3.17); Alkaline Phosphatase 75 U/L (41-126); BUN/Creat Ratio 26.14 Ratio (12.00-20.00); Blood Urea Nitrogen 21.7 mg/dL (9.0-27.0); Calcium 9.8 mg/dL (8.7-10.3); Carbon Dioxide 22.9 mmol/L (20.0-27.5); Chloride 97 mmol/L (96-109); Chol/HDL Ratio 3.87 Ratio; Globulin 2.4 g/dL (1.6-3.3); Glucose 124 mg/dL (70-110); LDL Cholesterol,Calculated 154.6 mg/dL (0.0-131.0); Non-African American GFR(CKD) 71.5 (60.0-200.0); Potassium 4.1 mmol/L (3.5-5.5); Sodium 136 mmol/L (135-145); Total Protein 7.3 g/dL (6.2-8.2); VLDL Calculation 19.02 mg/dL (5.00-40.00)
== END | disposition home or self-care (01) ==
LOC: LABWHC1 09:44
PROVIDERS: ATTEND Internal Medicine Interventional Cardiology
DX: Z00.01 Encounter for general adult medical examination with abnormal findings (principal); Z11.59 Encounter for screening for other viral diseases; E78.2 Mixed hyperlipidemia; E11.9 Type 2 diabetes mellitus without complications; F41.1 Generalized anxiety disorder; G25.81 Restless legs syndrome; I10 Essential (primary) hypertension
CPT/HCPCS: 36415; 80053; 80061; 83036; 84443; 85025; 86803

== ENCOUNTER → 2023-01-20 | Outpatient (CLI) | payer MEDICARE, OTHER ==
[2023-01-20 18:00] LABS: Basophils # (A) 0.04 X 10*3/uL (0.00-0.10); Basophils % (A) 0.7 %; Eosinophils # (A) 0.14 X 10*3/uL (0.04-0.35); Eosinophils % (A) 2.6 %; HCT 44.6 % (37.2-46.3); HGB 14.6 g/dL (12.0-15.0); Immature Grans, Automated 0.2 %; Lymphocytes # (A) 1.78 X 10*3/uL (0.90-5.00); Lymphocytes % (A) 32.8 %; MCHC 32.7 g/dL (32.0-37.0); MCV 91.8 fL (80.0-97.0); Mean Platelet Volume 12.6 fL (9.5-12.2); Monocytes # (A) 0.44 X 10*3/uL (0.20-1.00); Monocytes % (A) 8.1 %; NRBC Per 100 WBC 0 /100 WBCS (0.0-0.0); Neutrophils # (A) 3.01 X 10*3/uL (1.80-7.70); Neutrophils % (A) 55.6 %; Platelet Count 152 X 10*3/uL (140-440); RBC 4.86 X 10*6/uL (4.10-5.20); RDW 11.9 % (11.5-14.5); WBC 5.42 X 10*3/uL (4.50-10.00)
[2023-01-20 19:05] LABS: ALT 37 U/L (8-44); AST 33 U/L (13-35); Albumin 5.1 g/dL (3.8-4.9); Albumin/Globulin Ratio 1.96 (1.60-3.17); Alkaline Phosphatase 74 U/L (41-126); BUN/Creat Ratio 27.88 Ratio (12.00-20.00); Blood Urea Nitrogen 22.3 mg/dL (9.0-27.0); Calcium 10.3 mg/dL (8.7-10.3); Carbon Dioxide 21.3 mmol/L (20.0-27.5); Chloride 100 mmol/L (96-109); Chol/HDL Ratio 3.49 Ratio; Globulin 2.6 g/dL (1.6-3.3); Glucose 104 mg/dL (70-110); LDL Cholesterol,Calculated 145.4 mg/dL (0.0-131.0); Non-African American GFR(CKD) 74.2 (60.0-200.0); Potassium 4.4 mmol/L (3.5-5.5); Sodium 138 mmol/L (135-145); Total Protein 7.7 g/dL (6.2-8.2); VLDL Calculation 14.44 mg/dL (5.00-40.00)
[2023-01-20 23:50] LABS: Microalbumin Creatinine Ratio <30 mg/g Creat (0-30); Urine Creatinine 30.6 mg/dL (28.0-217.0)
== END | disposition home or self-care (01) ==
LOC: LABWHC1 11:02
PROVIDERS: ATTEND Nurse Practitioner Family
DX: Z13.228 Encounter for screening for other metabolic disorders (principal); I10 Essential (primary) hypertension; E11.9 Type 2 diabetes mellitus without complications; E56.9 Vitamin deficiency, unspecified; E78.5 Hyperlipidemia, unspecified
CPT/HCPCS: 36415; 80053; 80061; 82043; 82306; 82570; 83036; 84443; 85025

== ENCOUNTER → 2023-03-23 | Outpatient (CLI) | payer MEDICARE, OTHER ==
--- NOTE | 2023-03-23 17:28 | CA ---
Transthoracic Echo Report Name: Ailin Ravi Age: 72 Gender: F : 1950 Exam Date: 03/23/2023 13:06 Exam Location: [place] [facility] Ht (in): 63 Wt (lb): 140 Ordering Physician: Avni Mcclain MD ([id number]) Attending/Referring Phys: Johny LINARES Trench Pipe Layer Shanice Montes De Oca RDCS Procedure CPT: Indications: I34 NONRHEUMATIC MITRAL (VALVE) INSUFFICIENCY Cardiac Hx: Technical Quality: Fair Contrast 1: Total Dose (mL): Contrast 2: Total Dose (mL): MEASUREMENTS (Male / Female) Normal Values 2D ECHO LV Diastolic Diameter PLAX 5.3 cm 4.2 - 5.9 / 3.9 - 5.3 cm LV Systolic Diameter PLAX 3.3 cm IVS Diastolic Thickness 1.2 cm 0.6 - 1.0 / 0.6 - 0.9 cm LVPW Diastolic Thickness 1.1 cm 0.6 - 1.0 / 0.6 - 0.9 cm LV Relative Wall Thickness 0.4 RV Internal Dim ED PLAX 3.2 cm LA Volume 50.5 cm??? 18 - 58 / 22 - 52 cm??? M-MODE Aortic Root Diameter MM 2.7 cm LA Systolic Diameter MM 3.8 cm LA Ao Ratio MM 1.4 AV Cusp Separation MM 1.7 cm DOPPLER AV Peak Velocity 154.7 cm/s AV Peak Gradient 9.6 mmHg AV Mean Velocity 95.1 cm/s AV Mean Gradient 4.2 mmHg AV Velocity Time Integral 27.9 cm LVOT Peak Velocity 108.1 cm/s LVOT Peak Gradient 4.7 mmHg LVOT Velocity Time Integral 21.6 cm MV Area PHT 2.2 cm??? Mitral E Point Velocity 66.6 cm/s Mitral A Point Velocity 101.0 cm/s Mitral E to A Ratio 0.7 MV Deceleration Time 347.2 ms MV E' Velocity 5.5 cm/s Mitral E to MV E' Ratio 12.0 TR Peak Velocity 239.3 cm/s TR Peak Gradient 22.9 mmHg Right Ventricular Systolic Press 25.9 mmHg FINDINGS Left Ventricle Mildly increased left ventricular wall thickness. Left ventricular cavity size normal. Normal left ventricular systolic function with no obvious regional wall motion abnormalities. Left ventricular ejection fraction is estimated at 55-60 %. Right Ventricle Normal right ventricular size and function. Right ventricular systolic pressure within normal limits. Right Atrium Normal right atrial size. Left Atrium Normal left atrial size. Mitral Valve Structurally normal mitral valve. No mitral stenosis. Mild mitral regurgitation. Aortic Valve Trileaflet aortic valve. No aortic valve stenosis or regurgitation. Tricuspid Valve Structurally normal tricuspid valve. Mild tricuspid regurgitation. Pulmonic Valve Structurally normal pulmonic valve. Trace pulmonic regurgitation. Pericardium No pericardial effusion. Aorta Normal size aortic root and proximal ascending aorta. CONCLUSIONS Normal LV systolic function Mild mitral regurgitation Previewed by: Dr. Avni Mcclain MD (Electronically Signed) Final Date: 23 Mar 2023 17:28
== END | disposition home or self-care (01) ==
LOC: RADECHMAIN 12:51
PROVIDERS: ATTEND Internal Medicine Cardiovascular Disease
DX: I08.1 Rheumatic disorders of both mitral and tricuspid valves (principal)
CPT/HCPCS: 93306

== ENCOUNTER → 2023-10-07 | Outpatient (CLI) | payer MEDICARE, OTHER ==
--- NOTE | 2023-10-07 13:09 | MM ---
Reason for Exam: Clinical finding. Last screening mammogram was performed 10 month(s) ago. Indicated Problems: Pain of the left side (Focal) for 2 Week(s) : AT NIPPLE. Patient History: Menarche at age 13. First Full-Term at age 24. Postmenopausal. Hormonal Contraceptives for 33 years from age 21 until age 54. 1980, Excisional Biopsy on the Right side. Risk Values: Reyna 5 year model risk: 1.8%. NCI Lifetime model risk: 5.1%. Tissue Density: The breast tissue is heterogeneously dense. This may lower the sensitivity of mammography. Findings: Analyzed By CAD. No evidence of mass or distortion. Nipple inversion is stable dating back to 2018. Vascular calcifications present without suspicious cluster. Managed clinically. Overall Assessment: Benign, BI-RAD 2 Management: Screening Mammogram of both breasts in 1 year. . Results were given to the patient verbally at the time of exam. Patient should continue monthly self-breast exams. A clinical breast exam by your physician is recommended on an annual basis. This exam should not preclude additional follow-up of suspicious palpable abnormalities. Note on Reyna scores and lifetime risk: 1. A Reyna score greater than 3% is considered moderate risk. If this is the case, consider specialist referral to assess eligibility for a risk reducing agent. 2. If overall lifetime risk for the development of breast cancer is 20% or higher, the patient may qualify for future screening with alternating mammogram and breast MRI. Electronically signed and approved by: Gelacio Adam M.D. Radiologis
== END | disposition home or self-care (01) ==
LOC: RADMAMWWP 12:43
PROVIDERS: ATTEND Obstetrics & Gynecology
DX: R92.333 Mammographic heterogeneous density, bilateral breasts (principal); N64.53 Retraction of nipple; N64.4 Mastodynia; Z78.0 Asymptomatic menopausal state
CPT/HCPCS: 77066; G0279; 77062

== ENCOUNTER → 2024-08-24 | Outpatient (CLI) | payer MEDICARE ==
--- NOTE | 2024-08-24 13:23 | US ---
EXAMINATION TYPE: US transvaginal DATE OF EXAM: 08/24/2024 COMPARISON: Pelvic ultrasound 11/13/2020 CLINICAL INDICATION: Female, 73 years old with history of R10.2 PELVIC PAIN; pelvic pain. Pt had surg koko last December to hold her bladder up. TECHNIQUE: Transvaginal (TV). FINDINGS: Date of LMP: Postmenopause for 29 years EXAM MEASUREMENTS: Uterus: 5.9 x 4.1 x 1.8 cm Endometrial Stripe: 0.4 cm Right Ovary: not seen Left Ovary: not seen 1. Uterus: Anteverted wnl 2. Endometrium: wnl 3. Right Ovary: not seen due to bowel gas and possible atrophy 4. Left Ovary: not seen due to bowel gas and possible atrophy 5. Bilateral Adnexa: wnl 6. Posterior cul-de-sac: wnl Unremarkable anteverted uterus without focal lesion. Endometrium is within normal limits. No free flu id. Both ovaries are not visualized due to overlying bowel gas and possible atrophy. IMPRESSION: 1. No ultrasound evidence for acute pelvic process. 2. Nonvisualization of both ovaries which may be due to overlying bowel gas and possible atrophy. [facility], , 08/24/2024 1:20 PM
== END | disposition home or self-care (01) ==
LOC: RADUSWWP 12:27
PROVIDERS: ATTEND Obstetrics & Gynecology
DX: R10.2 Pelvic and perineal pain (principal)
CPT/HCPCS: 76830

== ENCOUNTER → 2024-10-04 | Outpatient (CLI) | payer MEDICARE ==
[2024-10-04 16:02] LABS: Basophils # (A) 0.05 X 10*3/uL (0.00-0.10); Basophils % (A) 1.1 %; Eosinophils # (A) 0.12 X 10*3/uL (0.04-0.35); Eosinophils % (A) 2.7 %; HCT 45.2 % (37.2-46.3); HGB 14.7 g/dL (12.0-15.0); Lymphocytes # (A) 1.33 X 10*3/uL (0.90-5.00); Lymphocytes % (A) 29.8 %; MCH 29.8 pg (27.0-32.0); MCHC 32.5 g/dL (32.0-37.0); MCV 91.5 FL (80.0-97.0); Mean Platelet Volume 12.1 FL (9.5-12.2); Monocytes # (A) 0.33 X 10*3/uL (0.20-1.00); Monocytes % (A) 7.4 %; NRBC Per 100 WBC 0 X 10*3/uL (0.00-0.01); Neutrophils # (A) 2.62 X 10*3/uL (1.80-7.70); Neutrophils % (A) 58.8 %; Platelet Count 126 X 10*3/uL (140-440); RBC 4.94 X 10*6/uL (4.10-5.20); WBC 4.46 X 10*3/uL (4.50-10.00)
[2024-10-04 18:05] LABS: Chol/HDL Ratio 3.15 Ratio; LDL Cholesterol,Calculated 158.1 mg/dL (0.0-131.0)
[2024-10-04 18:41] LABS: ALT 26 U/L (8-44); AST 36 U/L (13-35); Albumin/Globulin Ratio 1.85 Ratio (1.60-3.17); Alkaline Phosphatase 67 U/L (41-126); Carbon Dioxide 18.8 mmol/L (21.6-31.8); Chloride 103 mmol/L (96-109); Globulin 2.7 g/dL (1.6-3.3); Glucose 137 mg/dL (70-110); Potassium 4.4 mmol/L (3.5-5.5); Sodium 141 mmol/L (135-145); Total Bilirubin 1.3 mg/dL (0.3-1.2); Total Protein 7.7 g/dL (6.2-8.2)
[2024-10-04 19:24] LABS: Microalbumin Creatinine Ratio <29 mg/g Cr (0-30); Urine Creatinine 41.1 mg/dL (28.0-217.0)
== END | disposition home or self-care (01) ==
LOC: LABWHC1 10:02
PROVIDERS: ATTEND Nurse Practitioner Family
DX: Z13.220 Encounter for screening for lipoid disorders (principal); Z11.59 Encounter for screening for other viral diseases; Z13.228 Encounter for screening for other metabolic disorders; Z13.21 Encounter for screening for nutritional disorder; E11.9 Type 2 diabetes mellitus without complications; E78.5 Hyperlipidemia, unspecified; I10 Essential (primary) hypertension
CPT/HCPCS: 36415; 80053; 80061; 82043; 82306; 82570; 83036; 84443; 85025; 86803

== ENCOUNTER → 2024-10-31 | Outpatient (CLI) | payer MEDICARE ==
[2024-10-31 11:52] VITALS: BP 183/76; PULSE 54; RESP 16; TEMP 97.9
--- NOTE | 2024-10-31 12:25 | P.HPOB ---
History of Present Illness H&P Date: 10/31/24 Chief Complaint: The patient is here for her routine gynecologic exam and ma mmogram. This is a 74-year-old -0-1-1 with an LMP of 2002. The patient had a cystocele and this was causing problems for her. She had a cystocele repair done in December [address] Mak, a gynecologic urologist. She states she has been doing well with this. She is without gynecologic complaints. Review of Systems The patient has lost 6 pounds over the last year. She has been intentionally trying to lose weight and she has done this with a keto diet. She denies respiratory, cardiac, or G.I. problems. Past Medical History Past Medical History: Diabetes Mellitus, Hypertension Additional Past Medical History / Comment(s): Type II diabetes. Chronic back problems. 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 Grade 2 cystocele. History of Any Multi-Drug Resistant Organisms: None Reported Past Surgical History: Breast Surgery Additional Past Surgical History / Comment(s): Blepharoplasty BILAT EYELIDS. Nasal surgery. Colonoscopy 2016(next in 10 yrs). [facility]yst[facility]. Past Anesthesia/Blood Transfusion Reactions: Postoperative Nausea & Vomiting (PONV) Past Psychological History: Anxiety Smoking Status: Never smoker Past Alcohol Use History: Daily (1 to 2 glasses of wine per day.) Past Drug Use History: None Reported Additional History: She is and is currently not seeing anybody at this time. 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 - Past Family History Mother Family Medical History: No Reported History Father Family Medical History: Myocardial Infarction (CT) Sister(s) Family Medical History: AFIB Medications and Allergies Home Medications Medication Instructions Recorded Confirmed Type ALPRAZolam [Xanax] 0.125 mg PO HS 03/15/17 10/31/24 History Calcium Carbonate [Calcium] 600 mg PO DAILY 03/15/17 10/31/24 History Multivitamins, Thera [Multivitamin 1 tab PO DAILY 03/15/17 10/31/24 History (formulary)] Ibuprofen [Motrin] 400 mg PO Q8HR 09/01/17 10/31/24 History Losartan [Cozaar] 25 mg PO DAILY 10/04/18 10/31/24 History Cholecalciferol [Vitamin D3] 1,000 unit PO DAILY 01/31/19 10/31/24 History Allergies Allergy/AdvReac Type Severity Reaction Status Date / Time bee venom protein (honey bee) Allergy Anaphylaxis Verified 10/31/24 11:39 hornet venom Allergy Anaphylaxis Verified 10/31/24 11:39 STEROIDS AdvReac FLU LIKE Uncoded 10/31/24 11:39 SYMPTOMS Exam Vital Signs Temp Pulse Resp BP Pulse Ox 10/31/24 11:43 97.9 F 54 L 16 183/76 99 Intake and Output 10/30/24 10/31/24 10/31/24 22:59 06:59 14:59 Other: Weight 67.132 kg Height 5 feet 3 inches, weight 148 pounds, BMI 26.2. This is a well-developed well-nourished white female who is alert and oriented times 3 in no acute distress. HEENT: Within normal limits. NECK: Supple without mass or thyromegaly. CHEST AND LUNGS: Clear to auscultation. HEART: Regular rate and rhythm. BREASTS: Are without mass or discharge. There is bilateral nipple inversion which the patient states she has had for more than 10 years. AXILLARY EXAM: Negative for adenopathy. BACK: Negative for CVA tenderness. ABDOMEN: Soft, nontender, without palpable masses. PELVIC EXAM: Normal external genitalia with mild atrophy. Cervix and vagina appear normal with mild to moderate atrophy. There is no unusual discharge. There is no evidence of prolapse. There is no longer a cystocele noted following her surgical correction. The uterus is midposition, nongravid size and nontender. There are no palpable adnexal masses or tenderness. RECTAL EXAM: Rectovaginal exam is negative for mass or tenderness and is negative for occult blood. EXTREMITIES: Nontender. IMPRESSION: 1. 74-year-old menopausal female with normal gynecologic exam. 2. A cystocele is no longer noted after her surgical correction in 2023. 3. History of osteopenia. 4. Bated blood pressure with history of chronic hypertension. PLAN: 1. Pap smears have been discontinued 2. Self breast awareness was discussed with the patient. We have also discussed symptoms associated with inflammatory breast cancer. 3. Screening mammogram will be done today. 4. Osteoporosis prevention was discussed. I have stressed the importance of a dequate calcium, vitamin D and regular exercise. Recommended amounts of calcium and vitamin D were also discussed. Her last bone density test was done in 2020. I have recommended repeating the bone density test and the order slip was given to the patient for this. 5. We have discussed her elevated blood pressure. I have recommended that she check her own blood pressures at home on a regular basis and follow-up with her PCP for blood pressure elevations. 6. She was advised to return in one year for her annual well woman exam.
--- NOTE | 2024-10-31 12:32 | MM ---
Reason for Exam: Screening (asymptomatic). Last mammogram was performed 1 year(s) and 1 month(s) ago. Patient History: Menarche at age 13. First Full-Term at age 24. Postmenopausal. Hormonal Contraceptives for 33 years from age 21 until age 54. 1980, Excisional Biopsy on the Right side. Risk Values: Reyna 5 year model risk: 1.9%. NCI Lifetime model risk: 4.6%. Prior Study Comparison: 10/22/2021 Bilateral Screening Mammogram, [facility]. 12/08/2022 Bilateral MG 3D screening mammo w/cad, [facility]. 10/07/2023 Bilateral MG 3D diag mammo w/cad [facility], [facility]. Tissue Density: The breasts are heterogeneously dense, which may obscure small masses. Findings: Analyzed By CAD. Right breast: There is no suspicious group of microcalcifications or new suspicious mass. Benign-appearing calcifications right breast. Left breast: There is no suspicious group of microcalcifications or new suspicious mass. Benign-appearing calcifications left breast. Overall Assessment: Benign, BI-RAD 2 Management: Screening Mammogram of both breasts in [address] [facility] will attempt to contact patient to return for supplemental views and ultrasound if indicated. Patient should continue monthly self-breast exams. A clinical breast exam by your physician is recommended on an annual basis. This exam should not preclude additional follow-up of suspicious palpable abnormalities. Note on Reyna scores and lifetime risk: 1. A Reyna score greater than 3% is considered moderate risk. If this is the case, consider specialist referral to assess eligibility for a risk reducing agent. 2. If overall lifetime risk for the development of breast cancer is 20% or higher, the patient may qualify for future screening with alternating mammogram and breast MRI. [facility], , 10/31/2024 12:30 PM. Electronically signed and approved by: Nelson Prajapati DO
== END ==
LOC: WWCWWP 11:00
PROVIDERS: ATTEND Obstetrics & Gynecology
DX: Z01.419 Encounter for gynecological examination (general) (routine) without abnormal findings (principal); I10 Essential (primary) hypertension; Z12.31 Encounter for screening mammogram for malignant neoplasm of breast; Z86.79 Personal history of other diseases of the circulatory system; Z91.030 Bee allergy status; Z88.8 Allergy status to other drugs, medicaments and biological substances; Z87.39 Personal history of other diseases of the musculoskeletal system and connective tissue
CPT/HCPCS: 77063; 77067